=== PATIENT | male | born 1960 | race Caucasian/White ===

== ENCOUNTER 2016-05-30 08:00 | Day surgery (SDC) | payer OTHER ==
--- NOTE | ~2016-05-30 | EGD ---
EGD REPORT [facility] [address] [place]. [id number] NAME: YANDY DASILVA : [birth year] STATUS : REG [facility] PAT#: [id number] AGE: 55 ADM/REG DATE : 05/30/16 MR#: [id number] REPORT SERV DATE: 05/30/16 DICTATED BY: KANIKA GRANADOS DATE: 05/30/16 REPORT STATUS : Draft TRANSCRIBED BY: [facility] DATE: 05/30/16 Endoscopy Center Patient Name: Yandy Dasilva Date of : 1960 Attending MD: KANIKA GRANAODS MD Procedure Date No Time: 05/30/2016 Procedure: Colonoscopy Indications: Follow-up for history of adenomatous polyps in the colon, Last colonoscopy: May 2011 Referring MD: CELIA MCCLELLAN, EDGAR BEAN Medicines: Propofol per Anesthesia Complications: No immediate complications. Estimated blood loss: None. Procedure: Pre-Anesthesia Assessment: - After reviewing the risks and benefits, the patient was deemed in satisfactory condition to undergo the procedure. - Prior to the procedure, a History and Physical was performed, and patient medications and allergies were reviewed. The patient's tolerance of previous anesthesia was also reviewed. The risks and benefits of the procedure and the sedation options and risks were discussed with the patient. All questions were answered, and informed consent was obtained. Prior Anticoagulants: The patient has taken Xarelto (rivaroxaban), last dose was 3 days prior to procedure. ASA Grade Assessment: III - A patient with severe systemic disease. After reviewing the risks and benefits, the patient was deemed in satisfactory condition to undergo the procedure. After I obtained informed consent, the scope was passed under direct vision. Throughout the procedure, the patient's blood pressure, pulse, and oxygen saturations were monitored continuously. The CF [id number] was introduced through the anus and advanced to the cecum, identified by appendiceal orifice and ileocecal valve. The colonoscopy was performed without difficulty. The ileocecal valve and appendiceal orifice were photographed. The patient tolerated the procedure well. The quality of the bowel preparation was good. The bowel preparation used was polyethylene glycol (PEG). Scope withdrawal time was greater than 7 minutes. Findings: The perianal and digital rectal examinations were normal. Pertinent negatives include normal sphincter tone. Non-bleeding internal hemorrhoids were found during retroflexion and EGD REPORT [address] [id number] NAME: YANDY DASILVA : [birth year] STATUS : REG [facility]#: [id number] AGE: 55 ADM/REG DATE : 05/30/16 MR#: [id number] REPORT SERV DATE: 05/30/16 DICTATED BY: KANIKA GRANADOS DATE: 05/30/16 REPORT STATUS : Draft TRANSCRIBED BY: [employer] DATE: 05/30/16 were small and Grade I (internal hemorrhoids that do not prolapse). The exam was otherwise without abnormality. Impression: - Non-bleeding internal hemorrhoids. - The examination was otherwise normal. Recommendation: - Discharge patient to home (ambulatory). - Return to previous diet. - Continue present medications. - Repeat colonoscopy in 5 years for surveillance. - Patient has a contact number available for emergencies. The signs and symptoms of potential delayed complications were discussed with the patient. Return to normal activities tomorrow. Written discharge instructions were provided to the patient. Procedure Code(s): --- Professional --- 89423, Colonoscopy, flexible, proximal to splenic flexure; diagnostic, with or without collection of specimen(s) by brushing or washing, with or without colon decompression (separate procedure) Diagnosis Code(s): --- Professional --- K64.0, First degree hemorrhoids Z86.010, Personal history of colonic polyps CPT copyright 2013 [employer]. All rights reserved. The codes documented in this report are preliminary and upon chief steward/stewardess review may be revised to meet current compliance requirements. KANIKA GRANADOS MD 05/30/2016 10:09 AM This report has been signed electronically. Number of Addenda: 0 Note Initiated On: 05/30/2016 9:38 AM Scope Withdrawal Time 0 hours 7 minutes 26 seconds [address] [place] [address]
[~2016-05-30 08:00] MED LIST: COUMADIN10 MG PO; DIDANOSINE 400 MG OR; PRIN20 PO; REYATAZ OR; VIRAMUNE PO; XARELTO20 MG PO; ZESTRIL10 MG PO
== END 2016-05-30 23:59 | disposition home health service (06) ==
LOC: DMU 08:00
PROVIDERS: Internal Medicine Gastroenterology
PROC: 0DJD8ZZ Inspection of Lower Intestinal Tract, Via Natural or Artificial Opening Endoscopic (ICD-10-PCS; principal; 2016-05-30 09:45)
DX: K64.0 First degree hemorrhoids (principal); I10 Essential (primary) hypertension; Z86.718 Personal history of other venous thrombosis and embolism; B20 Human immunodeficiency virus [HIV] disease; G47.33 Obstructive sleep apnea (adult) (pediatric); Z90.49 Acquired absence of other specified parts of digestive tract; Z86.010 Personal history of colon polyps; Z98.890 Other specified postprocedural states